=== PATIENT | male | born 1995 | race Caucasian/White ===

== ENCOUNTER 2017-05-01 00:42 | Emergency (ER) | payer OTHER ==
[~2017-05-01] VITALS: Ht 180.3 cm; Wt 95.0 kg
[2017-05-01] MEDS ORDERED: ANTIDEPRESSANT (00:53)
[2017-05-01] MEDS ORDERED: methylPREDNISolone SOD SUCC 125 MG/2 ML IVPush ONE (01:30)
[2017-05-01] MEDS ORDERED: ONDANSETRON 2MG/ML, 2ML IVPush ONE (01:30)
[2017-05-01] MEDS ORDERED: DIAZEPAM 5 MG TABLET PO ONE (01:30)
[2017-05-01] MEDS ORDERED: KETOROLAC 30 MG/1 ML IVPush ONE (01:30)
[2017-05-01] MEDS ORDERED: MORPHINE SULFATE 4 MG/ML, 1ML ONE ×2 (01:51→02:38)
[2017-05-01] MEDS ORDERED: DIAZEPAM 5 MG TABLET ONE (01:51)
[2017-05-01] MEDS ORDERED: ONDANSETRON 2MG/ML, 2ML ONE (01:52)
[2017-05-01] MEDS ORDERED: KETOROLAC 30 MG/1 ML ONE (01:52)
[2017-05-01] MEDS ORDERED: methylPREDNISolone SOD SUCC 125 MG/2 ML ONE (01:52)
[2017-05-01] MEDS: MORPHINE SULFATE 4 MG/ML, 1ML IVPush PRN ×2 (02:00→02:42)
[2017-05-01 02:45] VITALS: BP 138/79
== END 2017-05-01 03:46 | disposition home or self-care (01) ==
LOC: ED 02:20
DX: S39.012A Strain of muscle, fascia and tendon of lower back, initial encounter (principal); M54.41 Lumbago with sciatica, right side; F17.200 Nicotine dependence, unspecified, uncomplicated; X50.0XXA Overexertion from strenuous movement or load, initial encounter; Y93.89 Activity, other specified; Y92.89 Other specified places as the place of occurrence of the external cause; Y99.8 Other external cause status
CPT/HCPCS: 72110; 96374; 96375; 96376; 99284; J1885; J2405; J2930